=== PATIENT | female | born 1970 | race Caucasian/White ===

== ENCOUNTER 2022-11-18 08:30 | Emergency (ER) | payer MEDICAID | END 2022-11-18 12:02 | disposition home or self-care (01) | LOC: JD.ED 08:30 | DX: S93.402A Sprain of unspecified ligament of left ankle, initial encounter (principal); W00.0XXA Fall on same level due to ice and snow, initial encounter | CPT/HCPCS: 73610-26-LT; 73610-LT; 73630-26-LT; 73630-LT; 99283 ==

== ENCOUNTER 2023-08-23 15:57 | Emergency (ER) | payer BC, MEDICAID | END 2023-08-23 19:37 | disposition home or self-care (01) | LOC: JD.ED 15:57 | DX: L76.32 Postprocedural hematoma of skin and subcutaneous tissue following other procedure (principal) | CPT/HCPCS: 93971-26-LT; 93971-LT; 99283 ==